=== PATIENT | male | born 1955 | race Caucasian/White ===

== ENCOUNTER 2016-05-14 15:54 | Observation (INO) | payer OTHER ==
[2016-05-14] MEDS ORDERED: NS 1,000 ML IV ONE (16:16)
--- NOTE | 2016-05-14 16:17 | EDPHY ---
H & P Time Seen by Provider: 05/14/16 16:15 HPI/ROS: CHIEF COMPLAINT: Possible seizure. 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 His daughter reports that while drinking coffee his head rolled back and he lost consciousness. He fell on the floor and began to shake, for 30 seconds to a minute. He was asymptomatic prior to the fall and was surprised to wake up on the floor. He was not confused after the episode. He has a history of migraines and did not have a headache prior to the episode. He now feels back to normal. No chest pain or SOB. No history of similar symptoms. REVIEW OF SYSTEMS: A complete 10-point review of systems was performed and is negative except for those items mentioned in the HPI. Past Medical/Surgical History: Migraine TRONCOSO Social History: Smoker, social alcohol use. Smoking Status: Current every day smoker Physical Exam: General Appearance: Alert, no distress Eyes: Pupils equal and round, no conjunctival pallor ENT, Mouth: Mucous membranes moist Neck: Normal inspection, NT, ROM without pain Respiratory: Lungs are clear to auscultation Cardiovascular: Regular rate and rhythm Gastrointestinal: soft and NT Neuro: Alert, CN II-XII intact, motor and sensory intact, gait not assessed Skin: Warm and dry, no rash Extremities: Nontender, no pedal edema Psychiatric: affect normal Constitutional: Initial Vital Signs Temperature (C) 36.2 C 05/14/16 16:02 Heart Rate 78 05/14/16 16:02 Respiratory Rate 16 05/14/16 16:02 Blood Pressure 125/72 H 05/14/16 16:02 O2 Sat (%) 94 05/14/16 16:02 O2 Delivery Mode Room Air Allergies/Adverse Reactions: adhesive [Adhesive] Allergy (Intermediate, Verified 10/19/10 15:32) Home Medications: Medication Instructions Recorded Acetaminophen [Tylenol 325mg (*)] 650 mg PO Q4HRS PRN #0 tab 05/15/16 Aspirin [Aspirin 325 mg (*)] 325 mg PO DAILY #0 tab 05/15/16 Medical Decision Making - Diagnostics EKG Interpretation: EKG interpreted by me reveals normal sinus rhythm, normal axis, normal intervals , ST and T segments normal. Interpretation: normal EKG Imaging: Study: CT of the head. Indication: Syncope. Results: 1. Mild cerebral atrophy. 2. Right occipital bone metallic screw. Please clinically correlate. 3. No acute hemorrhage, hydrocephalus or mass effect. 4. Consider additional MRI imaging if clinically indicated. The study was read by the radiologist, Dr. Aleman. I viewed the images myself on the PACS system. ED Course/Re-evaluation: This patient presents after a true syncopal episode, with subsequent seizure- like activity. Doubt primary seizure, given lack of post-ictal period. Stat EKG reveals no evidence of ischemia or dysrhythmia. An IV was established and BMP ordered. EKG ordered. 1L IV saline administered for hydration. Head CT ordered. vehicle monitor technician revealed normal sinus rhythm throughout. Will require admission for further evaluation of syncopal episode. 1721: Consulted with Dr. Dunn, hospitalist. He accepts admission to PCU. Differential Diagnosis: Differential diagnosis includes though is not limited to cardiac dysrhythmia, CVA, TIA, GI bleed, sepsis, hypoglycemia. - Data Points Laboratory Results: Laboratory Results 05/14/16 16:32 05/14/16 16:32 Medications Given: Discontinued Medications Aspirin (Aspirin) 325 mg PO DAILY ROSIO Stop: 11/10/16 18:59 Last Admin: 05/15/16 11:17 Dose: 325 mg Sodium Chloride (Ns) 1,000 mls @ 0 mls/hr IV ONCE ONE PRN Reason: Wide Open Stop: 05/14/16 16:17 Last Admin: 05/14/16 16:36 Dose: 1,000 mls Departure - Departure Disposition: [facility] Inpatient Acute Clinical Impression: Syncope Qualifiers: Qualifier Code: (R55) Syncope and collapse Condition: Good Report Scribed for: Jessica Gonzales Report Scribed by: Maikel Nichols Date of Report: 05/14/16 Time of Report: 16:17 Physician Review and Approval Statement: 05/14/16 16:17 Portions of this note were transcribed by a medical cash poster. I personally performed a history, physical exam, medical decision making, and confirmed accuracy of information the transcribed note.
--- NOTE | 2016-05-14 16:36 | CPEKG ---
Heart Rate: 73 RR Interval: 822 P-R Interval: 160 QRSD Interval: 106 QT Interval: 396 QTC Interval: 437 P [place]: 71 QRS [place]: 71 T Wave [place]: 23 EKG Severity - NORMAL ECG - EKG Impression: SINUS RHYTHM Electronically Signed By: Jessica Gonzales 14-May-2016 21:42:11
[2016-05-14 16:43] LABS: % IMMATURE GRANULYOCYTES 0.3 % (0.0-1.1); ABSOLUTE IMMATURE GRANULOCYTES 0.02 10^3/uL (0.00-0.10); ADD DIFF? NO; ADD MORPH? NO; ADD SCAN? NO; ATYPICAL LYMPHOCYTE FLAG 20 (0-99); FRAGMENT RBC FLAG 0 (0-99); HEMATOCRIT 42.1 % (40.0-51.0); HEMOGLOBIN 14.9 g/dL (13.7-17.5); LEFT SHIFT FLG 0 (0-99); LIPEMIA HEMOLYSIS FLAG 90 (0-99); MEAN CELL HEMOGLOBIN CONCENTR. 35.4 g/dL (32.4-36.7); MEAN CELL VOLUME 90.3 fL (81.5-99.8); MEAN PLATELET VOLUME 10.1 fL (8.7-11.7); PLATELET CLUMPS FLAG 0 (0-99); PLATELET COUNT 236 10^3/uL (150-400); RED BLOOD CELL COUNT 4.66 10^6/uL (4.40-6.38); RED CELL DISTRIBUTION WIDTH 13.5 % (11.5-15.2)
[2016-05-14 17:03] LABS: ANION GAP 9 mEq/L (8-16); CALCIUM 8.7 mg/dL (8.5-10.4); CARBON DIOXIDE 24 mEq/l (22-31); CHLORIDE 108 mEq/L (97-110); CREATININE 0.9 mg/dL (0.7-1.3); GLOMERULAR FILTRATION RATE > 60; GLUCOSE 105 mg/dL (70-100); POTASSIUM 4.4 mEq/L (3.5-5.2); SODIUM 141 mEq/L (134-144)
--- NOTE | 2016-05-14 17:43 | CT ---
CT Brain (Without Contrast) at 1724 hours History: Syncope, seizure. Comparison: None. Technique: Axial computed tomographic images of the brain without contrast. Dose reduction technique s were utilized. Findings: Ventricles, cisterns, and sulci are minimally widened. No hydrocephalus, midline shift/her niation, or epidural/subdural hematomas. No acute intraparenchymal hemorrhage, definite infarct, or m ass effect. Bone windows demonstrate no displaced fractures. Paranasal sinuses and mastoid air cells are clear. A metallic screw noted in the right occipital bone posterior to the right mastoid in a ret icular region through the outer table but not through the inner table causing slight metallic artifac t the right lateral cerebellar region. Impression: 1. Mild cerebral atrophy. 2. Right occipital bone metallic screw. Please clinically correlate. 3. No acute hemorrhage, hydrocephalus or mass effect. 4. Consider additional MRI imaging if clinically indicated. Findings and recommendations discussed with Emergency Department physician, Dr. Jessica Gonzales at 1735 hour, today. Final report concurs with initial preliminary interpretation.
[2016-05-14] MEDS ORDERED: ONDANSETRON DISINTEGRATING 4 MG TAB PO PRN (18:52)
[2016-05-14] MEDS ORDERED: ONDANSETRON 4 MG/2 ML VIAL IVP PRN (18:52)
[2016-05-14] MEDS ORDERED: ACETAMINOPHEN 325 MG TAB PO PRN (18:52)
--- NOTE | 2016-05-14 19:29 | GHP ---
[f rep st] HISTORY AND PHYSICAL DATE OF ADMISSION: 05/14/2016 DATE OF EVALUATION: 05/14/2016 HISTORY OF PRESENT ILLNESS: The patient is a 61-year-old gentleman with minimal past medical history who presented with syncope. The history is taken through his daughter. The patient is German-speaking. Apparently he was sitti ng at the breakfast table with his other daughter and he lost consciousness. He slumped down in his chair. There was some seizure-like activity. He was out for about 20 seconds, then he woke up. Whe n I speak with the patient, he denies antecedent chest pain, palpitations, nausea, vomiting, diarrhea . Says that he is eating and drinking well. There is no apparent stimulus for a vasovagal episode. He has no previous history of palpitation. He has good exercise tolerance. In fact, tried to go to the gym after this episode today. He does smoke cigarettes and drinks daily alcohol. Although he di d not quantify the amount, he said it was a good amount. REVIEW OF SYSTEMS: A complete 10-point review of systems was conducted and negative except as noted in the HPI. PAST MEDICAL HISTORY: 1. Closed head injury with apparent occipital screw. 2. Migraines. ALLERGIES: Adhesives. HOME MEDICATIONS: None. SOCIAL HISTORY: Tobacco and alcohol, as in the HPI. Lives with his daughter. German-speaking. FAMILY HISTORY: Daughter at the bedside. Healthy. PHYSICAL EXAM: VITAL SIGNS: Temperature 37.4, blood pressure 136/74, pulse 65, breathing 16 times a minute, 96% on room air. GENERAL: In no acute distress. Standing. HEENT: Sclerae are anicteric. Oropharynx is clear. Mucous membranes are moist. NECK: Supple without lymphadenopathy or JVD. L UNGS: Clear to auscultation bilaterally. HEART: S1, S2. ABDOMEN: Soft, nontender, nondistended. LOWER EXTREMITIES: Without edema. Calves nontender. SKIN: Without rash. NEUROLOGIC: Exam is no nfocal. LABORATORY DATA: White count 7.2, hematocrit 42.1, platelets are 236,000. Sodium 141, potassium 4.4, chloride 108, bicarb 24, BUN 12, creatinine, 0.9, glucose 105. Troponin l ess than 0.012. Chest x-ray, interpreted by me, shows no acute cardiopulmonary disease. Head CT shows no events. There is an occipital screw in place. I discussed the case with Dr. Jessica Gonzales in the Emergency Department. ASSESSMENT AND PLAN: A 61-year-old gentleman who with presented with syncope. 1. Syncope. This story of syncope without prodrome is concerning for cardiac arrhythmia. However, the patient looks quite well now and has no cardiac risk factors. We will cycle troponins and follow him on telemetry. I will hold off on ordering an echocardiogram at this point in time. I think pul monary embolism has been effectively ruled out by his absence of tachycardia or hypoxia or chest pain . We will repeat a hemoglobin in the morning to make sure he is not having a gastrointestinal bleed I and I do not think this represents seizures. 2. Seizure-like activity. This often happens in the setting of syncope. I do not think this repres ents a seizure. We will follow. 3. History of closed head injury. No further evaluation. 4. Prophylaxis. Pharmacologic prophylaxis is indicated if in the hospital longer than 24 hours. Fo r now, I have written for SCDs. DISPOSITION: Observation status. /[id number]/MODL
[2016-05-14] MEDS: ASPIRIN 325 MG TAB PO SCH (22:29)
[2016-05-15 05:33] LABS: % IMMATURE GRANULYOCYTES 0.1 % (0.0-1.1); ABSOLUTE IMMATURE GRANULOCYTES 0.01 10^3/uL (0.00-0.10); ADD DIFF? NO; ADD MORPH? NO; ADD SCAN? NO; ATYPICAL LYMPHOCYTE FLAG 10 (0-99); FRAGMENT RBC FLAG 0 (0-99); HEMATOCRIT 38.2 % (40.0-51.0); HEMOGLOBIN 13.4 g/dL (13.7-17.5); LEFT SHIFT FLG 0 (0-99); LIPEMIA HEMOLYSIS FLAG 90 (0-99); MEAN CELL HEMOGLOBIN 32.6 pg (27.9-34.1); MEAN CELL HEMOGLOBIN CONCENTR. 35.1 g/dL (32.4-36.7); MEAN CELL VOLUME 92.9 fL (81.5-99.8); MEAN PLATELET VOLUME 9.9 fL (8.7-11.7); PLATELET CLUMPS FLAG 0 (0-99); PLATELET COUNT 196 10^3/uL (150-400); RED BLOOD CELL COUNT 4.11 10^6/uL (4.40-6.38); RED CELL DISTRIBUTION WIDTH 13.6 % (11.5-15.2)
[2016-05-15 05:54] LABS: ANION GAP 7 mEq/L (8-16); CALCIUM 8.3 mg/dL (8.5-10.4); CARBON DIOXIDE 25 mEq/l (22-31); CHLORIDE 112 mEq/L (97-110); CREATININE 0.9 mg/dL (0.7-1.3); GLOMERULAR FILTRATION RATE > 60; GLUCOSE 116 mg/dL (70-100); POTASSIUM 4.5 mEq/L (3.5-5.2); SODIUM 144 mEq/L (134-144)
[2016-05-15 05:55] LABS: TROPONIN I < 0.012 ng/mL (0-0.034)
[2016-05-15] MEDS: ASPIRIN 325 MG TAB PO SCH (11:17)
--- NOTE | 2016-05-15 13:07 | ECHO ---
[id number] + + [phone] : : [place] [address] : : [phone] + + Adult Echocardiographic Report + --------+ :Name: CATHY OWODS YStudy Date: 05/15/2016 10:24 AM : : Hospital Admission Number: [id number] Locat ion: 222: :: 1955 Gender: Male Height: 69 in : :Age: 61 yrs Race: WH Weight: 182 l b : :Reason For Study: Syncope : : BSA: 2.0 mete rs2 : + --------+ MMode/2D Measurements & Calculations IVSd: 0.56 cm LVIDd: 5.2 cm FS: 47.6 % Ao root diam: LVPWd: 0.77 cm LVIDs: 2.7 cm EDV(Teich): 3.6 cm 132.0 ml LA dimension: ESV(Teich): 3.6 cm 28.3 ml EF(Teich): 78.6 % LVLd ap4: 8.3 cm SV(MOD-sp4): EDV(MOD-sp4): 53.0 ml 90.0 ml LVLs ap4: 7.7 cm ESV(MOD-sp4): 37.0 ml EF(MOD-sp4): 58.9 % Normal Measurement Values: + + :LVIDd (3.5-5.7cm) IVSd (0.6-1.1cm) LVPWd (0.6-1.1cm) Aortic Root (2.0-3.7cm)Left Atrium (1.5-4.0cm): :LV Vol(d) (76-115ml) LV Vol(s) (29-48ml) Ejec Fraction (50-65%)PV Shailesh (0.6- 1.2m/s) TV Shailesh (0.4-1.0m/s) : :MV E Shailesh (0.8-1.0m/s)MV A Shailesh (0.3-1.0m/s)LVOT Shailesh (0.7-1.2m/s) Asc Ao Shailesh ( 0.9-1.8m/s) : + + Doppler Measurements & Calculations MV E max shailesh: 59.7 cm/sec Ao V2 max: 100.4 cm/sec TR max shailesh: 203.6 cm/sec MV A max shailesh: 54.8 cm/sec Ao max P.0 mmHg TR max P.6 mmHg MV E/A: 1.1 RAP systole: 5.0 mmHg RVSP(TR): 21.6 mmHg Left Ventricle The left ventricle is normal in size. There is normal left ventricular wall thickness. Left ventricular systolic function is normal. Ejection Fraction = 60-65%. No regional wall motion abnormalities noted. Right Ventricle The right ventricle is mildly dilated. The right ventricular systolic function is normal. Atria The left atrial size is normal. Right atrial size is normal. Mitral Valve The mitral valve is normal in structure and function. There is no evidence of mitral valve prolapse. There is no mitral valve stenosis. There is mild mitral regurgitation. Tricuspid Valve Normal tricuspid valve. There is trace to mild tricuspid regurgitation. Right ventricular systolic pressure is normal. Aortic Valve The aortic valve is trileaflet. The aortic valve opens well. There is no aortic stenosis. There is no aortic insufficiency. Pulmonic Valve The pulmonic valve is normal in structure and function. There is no pulmonic valvular regurgitation. Great Vessels The aortic root is normal size. Pericardium/Pleural There is no pericardial effusion. Conclusion A complete two-dimensional transthoracic echocardiogram was performed (2D, M-mode, Doppler and color flow Doppler). Left ventricular systolic function is normal. Ejection Fraction = 60-65%. Right ventricle is mildly dilated with normal systolic function There is mild mitral regurgitation. There is trace to mild tricuspid regurgitation. Right ventricular systolic pressure is normal. No prior echo Final Reading Physician: Dr Tanya Leone electronically signed on 05/15/2016 01:06 PM Ordering Physician: Luz Nance Performed By: Talita Hay RDCS
[2016-05-15 15:32] VITALS: BP 127/75; PULSE 84; RESP 16; TEMP 98.4; O2SAT 96
--- NOTE | 2016-05-15 15:37 | PDDCSUM ---
Discharge Summary Discharge Summary: Dates of service 05/14-05/15/16 consultations: none Procedures echocardiogram Hospital course by problem: # syncope: presented with sudden syncope occurring after eating. Likely vasovagal however given lack of prodromal sxs this is uncertain. Tele monitoring , head CT, labs and echo unremarkable. Recommended f/u with PCP to consider holter monitoring. Discussed with patient and his daughter # anemia: slightly anemic with unknown baseline, needs continued monitoring and should have OP colonoscopy # h/o CHI and migraine: could be that syncopal episode actually represents seizure triggered by prior CHI however this seems less likely given hx, if recurs, would consider eeg and neuro f/u Meds: see EHR, no changes made Dispo: dc home in good condition, f/u with Dr. Hendricks to establish care with PCP (patient is [place] Zealander speaking)
== END 2016-05-15 16:45 | disposition home or self-care (01) ==
LOC: F2W 18:17
PROVIDERS: ADMIT Internal Medicine; ATTEND Internal Medicine
DX: R55 Syncope and collapse (principal); D64.9 Anemia, unspecified; F17.210 Nicotine dependence, cigarettes, uncomplicated; Z87.820 Personal history of traumatic brain injury
CPT/HCPCS: 70450; 93005; 93306; G0378